=== PATIENT | male | born 1945 | race Caucasian/White ===

== ENCOUNTER 2018-04-17 08:30 | Day surgery (SDC) | payer BC ==
[~2018-04-17] VITALS: Ht 177.8 cm; Wt 80.2 kg
[~2018-04-17 08:30] MED LIST: ATORVASTATIN CA40 MG PO; CALCITONIN-SAL3.8 ML ALT NARES; CALTRATE 600 +1 EAC1 PO; COQ-10100 MG PO; COUMADIN4 MG PO; CYANOCOBALAM1000 MCG PO; CYMBALTA30 MG PO; FLOMAX0.4 MG PO; GABAPENTIN300 MG PO; HYDROCODON-ACE1 EAC8 PO; LOVENOX80 MG/0.8 SC; OMEPRAZOLE20 M2 PO; PLAQUENIL200 MG PO; PREDNISONE1 MG PO; STOOL SOFTENER100 MG PO
[2018-04-17 09:22] VITALS: BP 165/74
[2018-04-17 09:39] LABS: INTER. NORMALIZED RATIO 1.1
[2018-04-17 09:42] LABS: PTT 37.1 SEC (25-37)
[2018-04-17 14:18] LABS: APPEARANCE CLEAR/COLORLESS; CSF TUBE NUMBER TUBE #2; RED CELL COUNT 2 /MM^3 (0-1); WHITE CELL COUNT 2 /MM^3 (0-5)
[2018-04-17 14:19] LABS: CSF EOSINOPHILS ND % (0-25); MONONUCLEAR WBC'S ND % (50-90); POLYNUCLEAR WBC'S ND % (0-3)
[2018-04-17 14:30] LABS: CSF PROTEIN 26 mg/dL (15-45)
[2018-04-17 14:36] LABS: GLUCOSE, CSF 56 mg/dL (40-80)
[2018-04-17 15:17] VITALS: BP 140/65
[2018-04-17 20:02] VITALS: BP 159/70
[2018-04-17 23:49] VITALS: BP 134/64
[2018-04-18 04:26] VITALS: BP 123/59
[2018-04-18] MEDS ORDERED: HYDROCODON-ACE1 EAC8 PO ×2 (06:53→06:54)
[2018-04-18 07:53] VITALS: BP 131/60
== END 2018-04-18 08:50 | disposition home or self-care (01) ==
LOC: SDC → 2SOUTH 13:42 → 3EAST 13:42 → 2SOUTH 13:42 → ENRESERV 13:43 → 2SOUTH 14:46 → 3EAST 14:49 → 2SOUTH 14:51 → EDSTATUS 15:14 → SDC 15:16 → 3EAST 04-18 08:50
PROVIDERS: Anesthesiology; Neurological Surgery
PROC: 00160J6 Bypass Cerebral Ventricle to Peritoneal Cavity with Synthetic Substitute, Open Approach (ICD-10-PCS; principal; 2018-04-17)
DX: G91.2 (Idiopathic) normal pressure hydrocephalus (principal); I10 Essential (primary) hypertension; E78.00 Pure hypercholesterolemia, unspecified; M79.7 Fibromyalgia; K21.9 Gastro-esophageal reflux disease without esophagitis; Z95.2 Presence of prosthetic heart valve; Z79.01 Long term (current) use of anticoagulants; Z87.891 Personal history of nicotine dependence
CPT/HCPCS: 70450; 82945; 84157; 85610; 85730; 86850; 86900; 86901; 87070; 87205; 89051; G0378; J0330; J0690; J1170; J2250; J2405; J2710; J3010; J3370; J3480; J7512; J7643; Q0175